=== PATIENT | female | born 2000 | race Caucasian/White ===

== ENCOUNTER 2024-06-21 05:52 | Emergency (ER) | payer OTHER, SELFPAY ==
--- NOTE | ~2024-06-21 | XR_ITS ---
EXAMINATION: XR chest 2V DATE: 06/21/2024 07:50 INDICATION: Right upper quadrant abdominal pain. TECHNIQUE: Frontal and lateral views of the chest were obtained. COMPARISON: None. FINDINGS: There is no pneumonia, pleural effusion, or pneumothorax. The heart size is normal. IMPRESSION: 1. No acute cardiopulmonary disease. Reviewed, dictated and finalized at location A.
[2024-06-21 05:57] VITALS: BP 146/76; PULSE 95; RESP 18; TEMP 36.2; O2SAT 100
[2024-06-21 06:14] VITALS: BP 148/83; PULSE 82; RESP 16; TEMP 36.6; O2SAT 100
[2024-06-21 06:17] LABS: BEDSIDEPREGUCG Negative (Negative)
[2024-06-21 06:23] LABS: Basophils Percent Auto 0.4 % (0.2-1.2); Eosinophils Absolute Auto 0.1 K/mm3 (0-0.3); Eosinophils Percent Auto 1.6 % (0-4.4); Hematocrit 42.7 % (37.0-47.0); Hemoglobin 14.3 g/dL (12.0-15.0); Immature Granulocyte Absolute 0.02 K/mm3 (0.00-0.031); Immature Granulocyte Percent A 0.3 % (0-0.5); Lymphocytes Absolute Auto 1.94 K/mm3 (0.9-3.2); Lymphocytes Percent Auto 27.8 % (18.3-44.2); Mean Corpuscular HGB Conc 33.5 g/dl (32-36); Mean Corpuscular Volume 89.5 fl (80-100); Mean Platelet Volume 10.9 fl (7.4-10.4); Monocytes Absolute Auto 0.4 K/mm3 (0.1-0.6); Monocytes Percent Auto 6.2 % (2.6-8.5); Neutrophils Absolute Auto 4.5 K/mm3 (1.3-6.7); Neutrophils Percent Auto 63.7 % (45.5-73.1); Platelet Count Result 230 k/mm3 (150-375); Red Blood Count 4.77 M/mm3 (4.2-5.4); Red Cell Distribution Width 11.9 % (11.5-14.5)
[2024-06-21 06:26] LABS: Add Urine Microscopic? YES; Appearance Urine Clear (Clear); Bacteria Urine Rare /hpf; Bilirubin Urine Negative (Negative); Blood Urine Negative (Negative); Color Urine Yellow (Yellow); Glucose Urine UA Negative (Negative); Ketones Urine Negative (Negative); Leukocyte Esterase Ur Trace LEU/UL (Negative); Nitrate Urine Negative (Negative); Non Pathogenic Casts 0-2; Protein Urine Negative (Negative); RBC Urine 0-2 /hpf (0-2); Specific Grav Ur 1.021 (1.001-1.035); Squamous Epithelial Cell Urine Occasional /hpf (Few); Urobilinogen Urine 0.2 mg/dL (<2.0); WBC Urine 0-5 /hpf (0-3); pH Urine 5.5 (5.0-9.0)
[2024-06-21 06:32] LABS: Alanine Aminotransferase 21 U/L (6-35); Albumin Level 4.3 g/dL (3.5-5.1); Alkaline Phosphatase 86 U/L (38-126); Anion Gap 8 mmol/L (4-12); Aspartate Amino Transferase 22 U/L (14-36); Bilirubin,Total 0.4 mg/dL (0.2-1.3); Blood Urea Nitrogen 16 mg/dL (7-17); Calcium 9.1 mg/dL (8.4-10.2); Carbon Dioxide 27 mmol/L (22-30); Chloride 104 mmol/L (98-107); Estimated CRCL calculation 119 ml/min; Estimated Glomerular Filt Rate > 60; Glucose 96 mg/dL (65-110); Lipase 146 U/L (23-300); Potassium 3.5 mmol/L (3.4-5.0); Sodium 139 mmol/L (137-145)
[2024-06-21 07:09] VITALS: BP 102/72; PULSE 94; RESP 16; O2SAT 100
--- NOTE | 2024-06-21 07:40 | ED.ABDPAIN ---
HPI - Abdominal Pain General Chief Complaint: Abdominal Pain Stated Complaint: r abd pain Time Seen by Provider: 06/21/24 07:05 Source: patient Mode of arrival: ambulatory Limitations: no limitations History of Present Illness HPI narrative: Patient presents with Right upper abdominal/flank pain located along the lateral edge for 2 days. LBM yesterday. No diarrhea/constipation/bloody stools. Has not yet taken anything for pain. The pain was sharp when she sneezes. No association with food/eating. No prior abdominal surgeries. No nausea/vomiting, fevers, cough. Applying icy hot hurt. Worse with deep breaths. LMP last week, June 11 - . Related Data Allergies Allergy/AdvReac Type Severity Reaction Status Date / Time No Known Allergies Allergy Verified 06/21/24 05:54 Exam Narrative: GENERAL: Well-appearing, well-nourished, and in no acute distress. HEAD: Normocephalic, atraumatic. EYES: Non injected, non icteric ENT: Nares clear, no rhinorrhea or epistaxis. NECK: Supple. CHEST: Speaking in full sentences. No respiratory distress. lungs clear to auscultation bilaterally without wheezes, crackles, or areas of focal consolidation. HEART: Regular rate and rhythm. . ABDOMEN: Soft, nondistended. No TTP x4 quadrants. No TTP of lateral ribs. No rigidty/guarding. Not peritoneal. Turk sign negative. EXTREMITIES: Normal range of motion. No lower extremity edema. SKIN: Warm, dry, no rash. NEURO: No focal deficits. Alert and oriented x3. PSYCH: Normal mood and affect. Course Vital Signs Vital signs: Vital Signs Temperature 97.1 F L 06/21/24 05:57 Pulse Rate 95 06/21/24 05:57 Respiratory Rate 18 06/21/24 05:57 Blood Pressure 146/76 H 06/21/24 05:57 Pulse Oximetry 100 06/21/24 05:57 Oxygen Delivery Room Air 06/21/24 05:57 Temperature 97.6 F 06/21/24 09:48 Pulse Rate 73 06/21/24 09:48 Respiratory Rate 15 06/21/24 09:48 Blood Pressure 130/80 06/21/24 09:48 Pulse Oximetry 99 06/21/24 09:48 Oxygen Delivery Room Air 06/21/24 05:57 MDM - Abdominal Pain MDM Narrative Medical decision making narrative: Patient presents with right sided abdominal pain. Not anterior or particularly located at the flank but rather along the lateral edge. In the ED she is afebrile with VS notable for mild hypertension. test negative. Hypertension resolved. Patient reassessed at approximately 9:00 a.m.. She had not yet received her dose of Bentyl that had been ordered but she did state that her pain was improving especially that it was no longer exacerbated with deep breaths. patient states that she had initially denied constipation however she did start a new animal based /cardio or diet and she does note that she has to sit on the toilet for longer and strain more frequently than previously. she has a primary care physician. In sum, this patient presents with abdominal pain of unclear etiology. Their evaluation has not identified an emergent etiology for the abdominal pain. Specifically, given the very benign exam, normal laboratory values, and lack of significant risk factors, I have a very low suspicion for appendicitis, ischemic bowel, bowel perforation, or any other life threatening disease. I have discussed with the patient the level of uncertainty with undifferentiated abdominal pain and clearly explained the need to follow-up as noted on the discharge instructions, or return to the Emergency Department immediately if the pain worsens, develops fever, persistent and uncontrollable vomiting, or for any new symptoms or concerns. Patient verified understanding and was in agreement, amenable with the plan. Differential Diagnosis Differential diagnosis: Likely other (hepatitis; biliary pathology; lobar pneumonia; too lateral and superior to suggest renal involvement) Lab Data Attestation: I reviewed the patient's lab results. Lab results narrative: No leukocytosis , no hematuria 06/21/24 06:11 06/21/24 06:11 Labs: Lab Results 06/21/24 06/21/24 Range/Units 06:11 06:14 WBC 7.0 (4.5-10.0) K/mm3 RBC 4.77 (4.2-5.4) M/mm3 Hgb 14.3 (12.0-15.0) g/dL Hct 42.7 (37.0-47.0) % MCV 89.5 (80-100) fl MCH 30.0 (26-34) pg MCHC 33.5 (32-36) g/dl RDW 11.9 (11.5-14.5) % Plt Count 230 (150-375) k/mm3 MPV 10.9 H (7.4-10.4) fl Immature Gran % (Auto) 0.3 (0-0.5) % Neut % (Auto) 63.7 (45.5-73.1) % Lymph % (Auto) 27.8 (18.3-44.2) % [place] % (Auto) 6.2 (2.6-8.5) % Eos % (Auto) 1.6 (0-4.4) % Baso % (Auto) 0.4 (0.2-1.2) % Lymph # (Auto) 1.94 (0.9-3.2) K/mm3 [place] # (Auto) 0.4 (0.1-0.6) K/mm3 Eos # (Auto) 0.1 (0-0.3) K/mm3 Baso # (Auto) 0.0 (0.0-0.1) K/mm3 Abs Immat Gran (auto) 0.02 (0.00-0.031) K/mm3 Absolute Neuts (auto) 4.5 (1.3-6.7) K/mm3 Absolute Nucleated RBC 0.000 (0.0-0.012) K/mm3 Nucleated RBC % 0.0 (0.0-0.2) % D-Dimer < 0.27 (<0.48) ug/mL Sodium 139 (137-145) mmol/L Potassium 3.5 (3.4-5.0) mmol/L Chloride 104 (98-107) mmol/L Carbon Dioxide 27 (22-30) mmol/L Anion Gap 8 (4-12) mmol/L BUN 16 (7-17) mg/dL Creatinine 0.70 (0.7-1.0) mg/dL Estim Creat Clear Calc 119 ml/min Estimated GFR > 60 (59 - ) Glucose 96 (65-110) mg/dL Calcium 9.1 (8.4-10.2) mg/dL Total Bilirubin 0.4 (0.2-1.3) mg/dL AST 22 (14-36) U/L ALT 21 (6-35) U/L Alkaline Phosphatase 86 (38-126) U/L Total Protein 8.0 (6.3-8.2) g/dL Albumin 4.3 (3.5-5.1) g/dL Lipase 146 (23-300) U/L Urine Color Yellow (Yellow) Urine Appearance Clear (Clear) Urine pH 5.5 (5.0-9.0) Ur Specific [place] 1.021 (1.001-1.035) Urine Protein Negative (Negative) mg/dL Urine Glucose (UA) Negative (Negative) mg/dL Urine Ketones Negative (Negative) mg/dL Ur Blood (Man) Negative (Negative) Urine Nitrate Negative (Negative) Urine Bilirubin Negative (Negative) Urine Urobilinogen 0.2 (<2.0) mg/dL Leukocyte Esterase Rfl Trace H (Negative) [place]/UL Urine RBC 0-2 (0-2) /hpf Urine WBC 0-5 (0-3) /hpf Ur Squamous Epith Cells Occasional (Few) /hpf Urine Bacteria Rare /hpf Urine Casts 0-2 POC Urine HCG, Qual Negative (Negative) Imaging Data Radiologist's impression: ITS Impressions Chest X-Ray 06/21/24 07:57 IMPRESSION: 1. No acute cardiopulmonary disease. Discharge Plan Discharge Clinical Impression: Abdominal pain, right lateral, Pleuritic pain Patient Disposition: Home, Self-Care Condition: Stable Instructions: Antibiotic Form, High Fiber Diet (ED), Abdominal Pain (ED) Additional Instructions: as we discussed, unclear etiology for your pain and symptoms. Your workup was thus far reassuring. you can take the prescribed medications. Drink plenty of water to stay hydrated. Follow-up with primary care physician or, alternatively, return to the emergency department with any new or worsening symptoms. For example, if the pain worsens, you develop a fever, you develop persistent or uncontrollable vomiting, etc. Prescriptions: New acetaminophen 500 mg capsule 1,000 mg PO Q6H PRN (Reason: pain) Qty: 20 0RF dicyclomine 10 mg capsule 10 mg PO BID PRN (Reason: abdominal pain) Qty: 10 0RF Follow-up/Referrals: UNKNOWN,DOCTOR [Primary Care Provider] - Stand Alone Forms: Work/School Release IP Time of Disposition: 09:12
[2024-06-21] MEDS: MORPHINE SULFATE (*CRX) 4 MG/ML INJ IV PUSH (08:04)
[2024-06-21 08:08] VITALS: BP 133/88; PULSE 87; RESP 16; O2SAT 100
[2024-06-21 08:15] LABS: D Dimer < 0.27 ug/mL (<0.48)
[2024-06-21 09:28] VITALS: BP 122/86; PULSE 92; RESP 14; O2SAT 100
[2024-06-21] MEDS: DICYCLOMINE HCL 10 MG CAPSULE PO (09:28)
[2024-06-21 09:48] VITALS: BP 130/80; PULSE 73; RESP 15; TEMP 36.4; O2SAT 99
== END 2024-06-21 09:50 | disposition home or self-care (01) ==
PROVIDERS: Preventive Medicine Aerospace Medicine; Emergency Provider Student in an Organized Health Care Education/Training Program
DX: R10.9 Unspecified abdominal pain (principal); R07.81 Pleurodynia
CPT/HCPCS: 36415; 71046; 80053; 81001; 81025; 83690; 85025; 85380; 96374; 99284; A9270; J2270

== ENCOUNTER 2024-10-16 06:41 | Emergency (ER) | payer OTHER, SELFPAY ==
--- NOTE | ~2024-10-16 | CT_ITS ---
Non-contrast CT scan of the Abdomen and Pelvis Clinical indication: Right flank pain Technique: 2.5 mm axial scans were obtained through the abdomen and pelvis without intravenous or or al contrast. Dose reduction technique was used on this scan by utilizing automated exposure control a nd iterative reconstruction technique. The dose-length product (DLP) was 1079.11 mGy-cm. Findings: Images through the lung bases reveal no abnormalities. There is a 4.5 mm stone in the very proximal ureter with mild right hydronephrosis present. Punctate nonobstructing left renal stone present. No left ureteral stone or left hydronephrosis. The liver, spleen, pancreas, gallbladder, and adrenals appear normal. There is no aortic aneurysm. There is no evidence of bowel obstruction. Images through the pelvis were performed. There is no evidence of ascites or lymphadenopathy. Urinary bladder unremarkable. No pelvic mass seen. Impression: 4.5 mm proximal right ureteral stone with mild right hydronephrosis. Punctate nonobstructing left renal stone. Reviewed, dictated and finalized at [facility]. MANAGER Impression: 4.5 mm proximal right ureteral stone with mild right hydronephrosis. Punctate nonobstructing left renal stone.
[2024-10-16 06:47] VITALS: BP 138/85; PULSE 81; RESP 14; TEMP 35.8; O2SAT 100
[2024-10-16 07:02] LABS: Basophils Percent Auto 0.4 % (0.2-1.2); Eosinophils Absolute Auto 0.1 K/mm3 (0-0.3); Eosinophils Percent Auto 0.8 % (0-4.4); Hematocrit 41.8 % (37.0-47.0); Hemoglobin 14.2 g/dL (12.0-15.0); Immature Granulocyte Absolute 0.02 K/mm3 (0.00-0.031); Immature Granulocyte Percent A 0.2 % (0-0.5); Lymphocytes Percent Auto 30.3 % (18.3-44.2); Mean Corpuscular Hemoglobin 30.5 pg (26-34); Mean Corpuscular Volume 89.9 fl (80-100); Mean Platelet Volume 10.4 fl (7.4-10.4); Monocytes Absolute Auto 0.5 K/mm3 (0.1-0.6); Monocytes Percent Auto 5.9 % (2.6-8.5); Neutrophils Absolute Auto 5.2 K/mm3 (1.3-6.7); Neutrophils Percent Auto 62.4 % (45.5-73.1); Platelet Count Result 226 k/mm3 (150-375); Red Blood Count 4.65 M/mm3 (4.2-5.4); Red Cell Distribution Width 11.9 % (11.5-14.5); White Blood Count 8.3 K/mm3 (4.5-10.0)
[2024-10-16 07:09] LABS: Add Urine Microscopic? YES; Appearance Urine Cloudy (Clear); Bacteria Urine None Seen /hpf; Bilirubin Urine Negative (Negative); Blood Urine 3+ (Negative); Color Urine Yellow (Yellow); Glucose Urine UA Negative (Negative); Ketones Urine Negative (Negative); Leukocyte Esterase Ur Trace LEU/UL (Negative); Nitrate Urine Negative (Negative); Non Pathogenic Casts 0-2; Protein Urine 1+ mg/dL (Negative); RBC Urine >100 /hpf (0-2); Squamous Epithelial Cell Urine Occasional /hpf (Few); Urobilinogen Urine 0.2 mg/dL (<2.0); WBC Urine 0-5 /hpf (0-3); pH Urine 5.5 (5.0-9.0)
[2024-10-16] MEDS: ONDANSETRON INJ 4 MG/2 ML VIAL IV PUSH (07:10)
[2024-10-16 07:15] LABS: Alanine Aminotransferase 23 U/L (6-35); Albumin Level 4.4 g/dL (3.5-5.1); Alkaline Phosphatase 70 U/L (38-126); Anion Gap 7 mmol/L (4-12); Aspartate Amino Transferase 21 U/L (14-36); Bilirubin,Total 0.7 mg/dL (0.2-1.3); Blood Urea Nitrogen 16 mg/dL (7-17); Calcium 9.3 mg/dL (8.4-10.2); Carbon Dioxide 28 mmol/L (22-30); Chloride 103 mmol/L (98-107); Estimated CRCL calculation 103 ml/min; Estimated Glomerular Filt Rate > 60; Glucose 115 mg/dL (65-110); Lipase 58 U/L (23-300); Potassium 4.1 mmol/L (3.4-5.0); Sodium 138 mmol/L (137-145)
[2024-10-16] MEDS: KETOROLAC 30 MG/ML VIAL (*BKC) IV PUSH (07:25)
[2024-10-16 07:45] VITALS: BP 130/88; PULSE 69; RESP 17; O2SAT 98
[2024-10-16 07:51] LABS: BEDSIDEPREGUCG Negative (Negative)
--- NOTE | 2024-10-16 07:52 | ED_ITS ---
HPI - General Adult General Chief complaint: Abdominal Pain Stated complaint: Feels like my appendix is going to burst Time Seen by Provider: 10/16/24 07:04 History of Present Illness HPI narrative: Patient is a 24-year-old female who presents ER with sudden onset right sided flank pain. Associated with vomiting. No radiation to the back or into the groin. Unsure if it is related to eating or drinking. She did have a basal on the way to the ER. Family history kidney stones. No personal history of gallstones. No alleviating factors. Does feel like her urine was abnormal in appearance. Related Data Allergies Allergy/AdvReac Type Severity Reaction Status Date / Time No Known Allergies Allergy Verified 10/16/24 07:25 Review of Systems 2 Review of Systems: All systems reviewed & are unremarkable except as noted in HPI and below Constitutional: Constitutional: Reports no additional constitutional complaints Cardiovascular: Cardiovascular: Reports no additional cardiovascular complaints Respiratory: Respiratory: Reports no additional respiratory complaints Gastrointestinal: Gastrointestinal: Reports no additional gastrointestinal complaints Genitourinary: Genitourinary: Reports no additional female genitourinary complaints [facility] Past Medical History Medical History (Updated 10/16/24 @ 09:18 by Ajith Pompa MD) Healthy female adult Surgical History Surgical History (Updated 10/16/24 @ 07:53 by Ajith Pompa MD) No history of previous surgery Exam 2 Narrative: GENERAL: Well-appearing, morbidly obese, and in no acute distress. HEAD: Normocephalic, atraumatic. ENT: Mucous membranes moist. CHEST: Clear to auscultation. No respiratory distress. HEART: Regular rate and rhythm. Normal peripheral pulses. ABDOMEN: Soft, nontender, nondistended. No CVA tenderness. EXTREMITIES: Normal range of motion. No edema. SKIN: Warm, dry, no rash. NEURO: Alert and oriented x3. PSYCH: Normal mood and affect. Course Course Emergency Course: Patient resting comfortably. Informed of results. Discussed outpatient treatment plan and patient verbalized understanding. Vital Signs Vital signs: Vital Signs Temperature 96.5 F L 10/16/24 06:47 Pulse Rate 81 10/16/24 06:47 Respiratory Rate 14 10/16/24 06:47 Blood Pressure 138/85 10/16/24 06:47 Pulse Oximetry 100 10/16/24 06:47 Oxygen Delivery Room Air 10/16/24 06:47 Temperature 96.5 F L 10/16/24 06:47 Pulse Rate 69 10/16/24 07:45 Respiratory Rate 17 10/16/24 07:45 Blood Pressure 130/88 10/16/24 07:45 Pulse Oximetry 98 10/16/24 07:45 Oxygen Delivery Room Air 10/16/24 06:47 Medical Decision Making Vital Signs Vital Signs: Vital Signs Temperature 96.5 F L 10/16/24 06:47 Pulse Rate 81 10/16/24 06:47 Respiratory Rate 14 10/16/24 06:47 Blood Pressure 138/85 10/16/24 06:47 Pulse Oximetry 100 10/16/24 06:47 Oxygen Delivery Room Air 10/16/24 06:47 Temperature 96.5 F L 10/16/24 06:47 Pulse Rate 69 10/16/24 07:45 Respiratory Rate 17 10/16/24 07:45 Blood Pressure 130/88 10/16/24 07:45 Pulse Oximetry 98 10/16/24 07:45 Oxygen Delivery Room Air 10/16/24 06:47 Lab Data 10/16/24 06:53 10/16/24 06:53 Labs: Lab Results 10/16/24 10/16/24 Range/Units 06:53 07:48 WBC 8.3 (4.5-10.0) K/mm3 RBC 4.65 (4.2-5.4) M/mm3 Hgb 14.2 (12.0-15.0) g/dL Hct 41.8 (37.0-47.0) % MCV 89.9 (80-100) fl MCH 30.5 (26-34) pg MCHC 34.0 (32-36) g/dl RDW 11.9 (11.5-14.5) % Plt Count 226 (150-375) k/mm3 MPV 10.4 (7.4-10.4) fl Immature Gran % (Auto) 0.2 (0-0.5) % Neut % (Auto) 62.4 (45.5-73.1) % Lymph % (Auto) 30.3 (18.3-44.2) % [place] % (Auto) 5.9 (2.6-8.5) % Eos % (Auto) 0.8 (0-4.4) % Baso % (Auto) 0.4 (0.2-1.2) % Lymph # (Auto) 2.50 (0.9-3.2) K/mm3 [place] # (Auto) 0.5 (0.1-0.6) K/mm3 Eos # (Auto) 0.1 (0-0.3) K/mm3 Baso # (Auto) 0.0 (0.0-0.1) K/mm3 Abs Immat Gran (auto) 0.02 (0.00-0.031) K/mm3 Absolute Neuts (auto) 5.2 (1.3-6.7) K/mm3 Absolute Nucleated RBC 0.000 (0.0-0.012) K/mm3 Nucleated RBC % 0.0 (0.0-0.2) % Sodium 138 (137-145) mmol/L Potassium 4.1 (3.4-5.0) mmol/L Chloride 103 (98-107) mmol/L Carbon Dioxide 28 (22-30) mmol/L Anion Gap 7 (4-12) mmol/L BUN 16 (7-17) mg/dL Creatinine 0.76 (0.7-1.0) mg/dL Estim Creat Clear Calc 103 ml/min Estimated GFR > 60 (59 - ) Glucose 115 H (65-110) mg/dL Calcium 9.3 (8.4-10.2) mg/dL Total Bilirubin 0.7 (0.2-1.3) mg/dL AST 21 (14-36) U/L ALT 23 (6-35) U/L Alkaline Phosphatase 70 (38-126) U/L Total Protein 7.0 (6.3-8.2) g/dL Albumin 4.4 (3.5-5.1) g/dL Lipase 58 (23-300) U/L Urine Color Yellow (Yellow) Urine Appearance Cloudy H (Clear) Urine pH 5.5 (5.0-9.0) Ur Specific [place] 1.020 (1.001-1.035) Urine Protein 1+ H (Negative) mg/dL Urine Glucose (UA) Negative (Negative) mg/dL Urine Ketones Negative (Negative) mg/dL Ur Blood (Man) 3+ H (Negative) Urine Nitrate Negative (Negative) Urine Bilirubin Negative (Negative) Urine Urobilinogen 0.2 (<2.0) mg/dL Leukocyte Esterase Rfl Trace H (Negative) [place]/UL Urine RBC >100 H (0-2) /hpf Urine WBC 0-5 (0-3) /hpf Ur Squamous Epith Cells Occasional (Few) /hpf Urine Bacteria None seen /hpf Urine Casts 0-2 POC Urine HCG, Qual Negative (Negative) Imaging Data Radiologist's impression: ITS Impressions Abdomen/Pelvis CT 10/16/24 08:04 Impression: 4.5 mm proximal right ureteral stone with mild right hydronephrosis. Punctate nonobstructing left renal stone. Discharge Plan Discharge Clinical Impression: Ureteral calculi Patient Disposition: Home, Self-Care Condition: Stable Instructions: Kidney Stones (ED) Additional Instructions: Return to the ER if you have worsening pain, you cannot keep down food/water/medication, or you develop fever over 100.4? F. Patient Language: Bulgarian Prescriptions: New hydrocodone-acetaminophen 5-325 mg tablet 1 tablet PO Q6H PRN (Reason: pain) Qty: 14 0RF tamsulosin 0.4 mg capsule 0.4 mg PO DAILY Qty: 7 0RF ondansetron 4 mg tablet,disintegrating 4 mg PO Q6H PRN (Reason: nausea and vomiting) Qty: 10 0RF No Action acetaminophen 500 mg capsule 1,000 mg PO Q6H PRN (Reason: pain) Qty: 20 0RF dicyclomine 10 mg capsule 10 mg PO BID PRN (Reason: abdominal pain) Qty: 10 0RF Follow-up/Referrals: Maciej Martinez MD [Physician] - 1 Week UNKNOWN,DOCTOR [Primary Care Provider] -
[2024-10-16] MEDS: SODIUM CHLORIDE 0.9% IV 1,000 ML 999 ML IV CONT (08:51)
[2024-10-16 09:58] VITALS: BP 112/61; PULSE 70; RESP 15; O2SAT 100
== END 2024-10-16 10:00 | disposition home or self-care (01) ==
PROVIDERS: Emergency Medicine; Emergency Provider Emergency Medicine
DX: N13.2 Hydronephrosis with renal and ureteral calculous obstruction (principal)
CPT/HCPCS: 36415; 74176; 80053; 81001; 81025; 83690; 85025; 96361; 96374; 96375; 99284; J1885; J2405; J7030

== ENCOUNTER 2024-11-04 08:30 | Outpatient (CLI) | payer OTHER, SELFPAY ==
--- NOTE | ~2024-11-04 | XR_ITS ---
EXAMINATION: XR abdomen/kub 1V DATE: 11/04/2024 08:52 INDICATION: Right ureteral stone. TECHNIQUE: A supine view of the abdomen on 2 radiographs was obtained. COMPARISON: CT abdomen and pelvis 10/16/2024 FINDINGS: There are no dilated loops of bowel. There is a 3 mm stone in proximal right ureter. There is a phlebolith in left pelvis. IMPRESSION: 1. 3 mm stone in proximal right ureter. Reviewed, dictated and finalized at location B.
== END 2024-11-04 08:31 | disposition home or self-care (01) ==
PROVIDERS: Visit Provider Urology
DX: N20.1 Calculus of ureter (principal)
CPT/HCPCS: 74018

== ENCOUNTER 2024-11-11 14:45 | Outpatient (CLI) | payer OTHER, SELFPAY ==
[2024-11-11 15:37] LABS: Prothrombin Time 13.8 Seconds (11.1-14.7)
[2024-11-11 15:38] LABS: Partial Thromboplastin Time 32.4 Seconds (22.3-36.8)
== END 2024-11-11 14:46 | disposition home or self-care (01) ==
PROVIDERS: Visit Provider Urology
DX: Z01.818 Encounter for other preprocedural examination (principal); N20.0 Calculus of kidney
CPT/HCPCS: 36415; 85610; 85730; 87086

== ENCOUNTER 2024-11-15 00:16 | Day surgery (SDC) | payer OTHER, SELFPAY ==
[2024-11-07 13:09] VITALS: BMI 39.9
--- NOTE | 2024-11-07 13:15 | PC.NURSE ---
Report to the Outpatient Waiting Room, entrance under the green pavilion located off [facility], at time _0600_ on date _[id number]_. Planned Procedure Time: _0730_.? Time changes happen often and if your time is changed the preop area will call you the afternoon before. - You and your visitor will be asked to self-screen and do not enter if you have any COVID symptoms. Please call surgeon if you need to reschedule. - A mask is optional within the hospital at this time. Patients may have clear liquids (water, carbonated beverages, clear teas, apple juice) until 3 hours prior to surgery with a maximum of 20 ounces. - No food from midnight until time of surgery and no smoking, or chewing tobacco (or any form of nicotine). No chewing gum, candy or mints. Take only the following medications with a SIP of water on the morning of surgery: ___Acetaminophen if needed. DO NOT STOP ANY OF YOUR OTHER PRESCRIPTION MEDICATIONS PRIOR TO SURGERY EXCEPT THE FOLLOWING Hold all vitamins and supplements for 3 days per anesthesiologist. Medications to discontinue per physician Date to take last dose Please no make-up, nail danish, hairspray, perfume, deodorant, or body powder the day of surgery.? No jewelry (including any body piercings) or valuables the day of surgery, leave them at home.? Please take a shower or bath the night before, or the morning of, surgery with an antibacterial soap.? Wear comfortable, loose fitting clothing.? - Jewelry must be removed prior to entering the operating room.? Rings and piercings that are not removed may be cut off. - The hospital will not accept responsibility for valuables.? - Please leave all valuables, including medications, at home the day of surgery. If you are going home after surgery, a licensed paratransit driver must drive you home.? - NO public transportation without another adult if you receive anesthesia. - We recommend that an adult stay with you for 24 hours following discharge. - We also recommend that you do not drive, make important decision, drink alcoholic beverages, or take any drugs that were not prescribed by your health care provider for at least 24 hours after your discharge time. Follow any additional instructions given to you from your surgeon. Telephone instructions given to __Sydney__and asked if any additional questions and then verbalized understanding. Patient advised to call surgeon office or pre surgery nurse liaison [phone] if any additional questions.
[2024-11-15] VITALS (8 sets, daily range): BP systolic 97–133; BP diastolic 47–75; PULSE 62–90; RESP 12–20; TEMP 36.3–36.4; O2SAT 99–100; BMI 40.1
--- NOTE | ~2024-11-15 | XR_ITS ---
Supine and upright views of the abdomen Clinical history: Lithotripsy COMPARISON: 11/04/2024 Findings: Bowel gas pattern is nonspecific. No evidence for obstruction or free air. Possible 3 mm ri ght ureteral stone. Osseous structures are intact. Impression: Possible 3 mm right ureteral stone. Reviewed, dictated and finalized at [facility]. Impression: Possible 3 mm right ureteral stone.
--- NOTE | 2024-11-15 06:15 | WPDHPUPDATE1 ---
History and Physical Update Update Date/Time: 11/15/24 06:15 History and Physical has been reviewed, including an updated exam of the patient. There are NO changes in the patient's condition. Risks, benefits, and alternatives have been discussed and questions answered. Patient agrees to proceed with procedure.
--- NOTE | 2024-11-15 06:16 | WPDHPUPDATE1 ---
History and Physical Update Update Date/Time: 11/15/24 06:16 History and Physical has been reviewed, including an updated exam of the patient. There are NO changes in the patient's condition. Risks, benefits, and alternatives have been discussed and questions answered. Patient agrees to proceed with procedure.
[2024-11-15 06:28] LABS: BEDSIDEPREGUCG Negative (Negative)
--- NOTE | 2024-11-15 06:30 | P.PNAN_ITS ---
Anes - Initial Pre Proc Eval Procedure: Operation Date: 11/15/24 07:30 Proposed Procedures p Right Extracorporeal Shock Wave Lithotripsy - Oliverio Rodriguez MD Date/Time: 11/15/24 06:30 Surgeon: Oliverio Rodriguez MD Pre Op Diagnosis: right ureteral stones Patient Data Age: 24 Gender: F Height: 1.6 m Weight: 102.9 kg Allergies Allergy/AdvReac Type Severity Reaction Status Date / Time No Known Allergies Allergy Verified 11/15/24 06:22 Home Medications ?Medication ?Instructions ?Recorded ?Confirmed ?Type acetaminophen 500 mg capsule 1,000 mg (2 x 500 mg) PO Q6H PRN 06/21/24 11/07/24 Rx pain #20 caps Laboratory Tests 11/15/24 06:26 POC Urine HCG, Qual Negative (Negative) Patient hx anesthesia problems: none Family hx anesthesia problems: none Results Review: All pre-operative results and documents have been reviewed as part of the pre- operative evaluation. [facility] Past Medical History Medical History (Updated 11/15/24 @ 06:31 by Wale Blount MD) Morbid obesity Surgical History Surgical History (Updated 10/16/24 @ 07:53 by Ajith Pompa MD) No history of previous surgery Social History Social History Smoking status: Never smoker Living arrangements: with family Spiritual care concerns: No Anes - Eval Final PreProcedure Day of Procedure 11/15/24 06:30 Patient weight: morbidly obese Heart: regular rate and rhythm Lungs: clear to auscultation Airway: Mallampati scale class II Neurological: alert and oriented Last oral intake: >/= 8 hours ASA classification: II Emergent: no Anesthetic plan: proceed Anesthesia type and monitoring: general LMA and standard monitoring Results Review: All pre-operative results and documents have been reviewed as part of the pre- operative evaluation. Informed Consent: The patient's anesthetic plan and its attendant risks and benefits were discussed with the patient/family/POA. Questions were solicited and answers provided to the satisfaction of the patient/family/POA.
[2024-11-15] MEDS: LACTATED RINGERS 1,000 ML 30 ML IV CONT (06:35)
[2024-11-15] MEDS: ceFAZolin 2 GM/D5W 50 ML 2 GM/50 ML BAG IVPB (07:20)
--- NOTE | 2024-11-15 07:57 | W.PM.PROC2 ---
Procedure Note - Detailed Date of Procedure 11/15/24 Pre-op Diagnosis Right ureteral stones Post-op Diagnosis Same Procedure Performed Right ESWL Surgeon Oliverio Rodriguez MD Anesthesia General Description of Procedure The patient was brought to the operative suite where he was placed in the supine position on the Dornier lithotripsy table. The focal point of the lithotripter was placed at a 3mm right proximal ureteal calculus. A total of 2500 shocks were delivered at a power setting of 2. There appeared to be good fragmentation of the stone. The patient tolerated the procedure well and was taken to the recovery room in good condition. Drains No Packing No Pathology None sent Complications No immediate complications Condition Stable
== END 2024-11-15 09:44 | disposition home or self-care (01) ==
PROVIDERS: Visit Provider Urology
PROC: (CPT 50590; principal; 2024-11-15 07:30)
DX: N20.1 Calculus of ureter (principal); E66.01 Morbid (severe) obesity due to excess calories; Z68.41 Body mass index [BMI] 40.0-44.9, adult
CPT/HCPCS: 50590; 74018; J0690; J2003; J2250; J2405; J2704; J3010; J7120

== ENCOUNTER 2024-12-11 08:01 | Outpatient (CLI) | payer OTHER, SELFPAY ==
--- NOTE | ~2024-12-11 | XR_ITS ---
XR abdomen/kub 1V Ordering provider: Oliverio Rodriguez MD History: . N20.1 - Calculus of ureter . Comparison: None. FINDINGS: BOWEL: Nonobstructive bowel gas pattern. ORGANOMEGALY: None. SIGNIFICANT PATHOLOGIC CALCIFICATIONS: Tiny stone in the left kidney midpole. OTHER: No free air is seen under the diaphragm. IMPRESSION: NO ACUTE ABDOMINAL FINDINGS. Tiny stone in the left kidney midpole. Reviewed, dictated and finalized at location A.
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
--- OUTSIDE RECORDS SUMMARY | 2024-12-11 08:14 | XMS_ITS | Referral Summary ---
Author Organization [facility] [address] Address [address] [place] [address] Phone Care Team Providers Care Microsoft Dynamics Ax Developer Name Role Phone Jany Jalloh NP Primary Care Provider [phone] Allergies Active Allergy Reactions Criticality Noted Date [...] Polysaccharide (Menomune) 05/04/2011 Tdap 04/19/2010 Varicella 03/22/2016,04/21/1999 Social History Tobacco Use Types Packs/Day Years Used Date Smoking Tobacco: Never Smokeless Tobacco: Never Tobacco Cessation:Counseling Given: Not Answered Comments:around a lot of second hand smoke Alcohol Use Standard Drinks/Week Comments No 0 (1 standard drink = 0.6 oz pur e alcohol) Comments No Sex and Gender Information Value Date Recorded Sex Assigned at Not on file Legal Sex Female 10:37 AM BRICK OFF BEARER Gender Identity Not on file Sexual Orientation Not on file 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 file Not on file Last Filed Vital Signs Vital Sign Reading Time Taken Comments Blood Pressure 122/70 04/05/2023 9:36 AM CDT Pulse 91 11/02/2019 2:45 AM BRICK OFF BEARER Temperature 36.6 C (97.8 F) 03/24/2020 8:25 AM CDT Respiratory Rate 18 11/02/2019 2:45 AM BRICK OFF BEARER Oxygen Saturation 100% 11/02/2019 2:45 AM BRICK OFF BEARER Inhaled Oxygen Concentration - - Weight 99.3 kg (219 lb) 04/05/2023 9:36 AM CDT Height 162.6 cm (5' 4 ) 04/05/2023 9:36 AM CDT Body Mass Index 37.59 04/05/2023 9:36 AM CDT Plan of Treatment Not on file Procedures Procedure Name Priority Date/Time Associated Diagnosis [...] PATHOLOGY CH - 04/07/2023 3:21 PM CDT [facility] Department of Pathology [address] [place], [place] [id number] Final Report Note to Patients: This report [...] details. Patient Name: OLESYA GAMEZ V. Address: [address] [place] [address] Gender: F : 2000 (Age: 22) Service: Location: N : [id number] [facility] #: [id number] Patient Type: SPECIMEN Taken: 04/05/2023 Received: 04/05/2023 Accessioned:: 04/06/2023 Reported: 04/07/2023 Physician(s): MD Gabriela Murray MD Diagnosis: SOURCE OF SPECIMEN Imaged Thinprep Pap Test w/ Reflex HPV - Telecommunication Operator Cytologic Material: STATEMENT OF ADEQUACY - Satisfactory for evaluation; endocervical/transformation zone component present GENERAL CATEGORIZATION: - Negative for intraepithelial lesion or malignancy NOHEMI Blunt(ASCP) Report Electronically Reviewed and Signed Out By NOHEMI Blunt(ASCP) 04/07/2023 15:21:50Specimen(s) Received: A: Imaged Thinprep Pap Test w/ Reflex HPV - Telecommunication Operator Cytologic Material Clinical History: Last Menstrual Period: [...] determined by the Surgical Pathology Department at [facility] as part of an ongoing quality worker program and in compliance with federally mandated [...] characteristics determined by the Surgical Pathology Department [facility]. It has not been cleared or approved by the U. S. Food and Drug Administration. Gabriela Marrero MD LAB CYTOLOGY ORDERABL ES Final Result Performing Organization Address City/State/[facility] Co de Phone Number PATHOLOGY [address] [place] [address] from Last 3 Months or Most Recently Relevant to Health Maintenance Insurance [facility] CHOICE PLUS [facility] H[facility]/PPO Address: [facility] [address] [place] [address] CIGNA CIGNA Care Teams Microsoft Dynamics Ax Developer Relationship Specialty Start Date End Date Jany Jalloh NP [address] [place] [address] PCP - General 11/02/19
== END 2024-12-11 08:02 | disposition home or self-care (01) ==
PROVIDERS: Visit Provider Urology
DX: N20.1 Calculus of ureter (principal)
CPT/HCPCS: 74018